=== PATIENT | male | born 1975 | race Caucasian/White ===

== ENCOUNTER 2018-08-19 11:58 | Emergency (ER) | payer BC, OTHER ==
[2018-08-19 12:17] VITALS: BP 158/79
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
== END 2018-08-19 13:45 | disposition home or self-care (01) ==
PROC: 2W3QX1Z Immobilization of Right Lower Leg using Splint (ICD-10-PCS; principal; 2018-08-19)
DX: S82.831A Other fracture of upper and lower end of right fibula, initial encounter for closed fracture (principal); V28.4XXA Motorcycle driver injured in noncollision transport accident in traffic accident, initial encounter